=== PATIENT | female | born 1970 | race Hispanic/Latino ===

== ENCOUNTER 2017-09-01 03:10 | Emergency (ER) | payer SELFPAY ==
[2017-09-01] MEDS ORDERED: HYDROXYZINE HCL 25 MG TABLET ONE (03:17)
[2017-09-01] MEDS ORDERED: ACETAMINOPHEN-CODEINE ELIXIR 5 ML UDCUP ONE (03:18)
[2017-09-01] MEDS ORDERED: DEXAMETHASONE SOD PHOSPHATE 4 MG/ML 1ML VIAL ONE (03:18)
== END 2017-09-01 03:39 | disposition home or self-care (01) ==
LOC: EDH 03:10
DX: B34.9 Viral infection, unspecified (principal); J30.9 Allergic rhinitis, unspecified; F41.9 Anxiety disorder, unspecified
CPT/HCPCS: 99283; J1100